=== PATIENT | female | born 1955 | race Caucasian/White ===

== ENCOUNTER 2018-11-08 09:58 | Emergency (ER) | payer MEDICARE ==
--- NOTE | 2018-11-08 10:09 | C.PDOC ---
History Of Present Illness 62 y/o female, with history of christy and chronic pain, presents to ED with chronic pain to her bilateral ankles and right hip. Patient notes this pain started 7 years ago. Also notes that the pain is like throbbing, but not worse than normal. She did not take any medications for the pain, and she is able to ambulate well. [place] notes of [place] and had been evaluated at a different hospital and was admitted for psych reasons at that time. Patient denies any recent fall or trauma, but [place]. No LOC, no pain worse than normal. No pain other than her ankles and her right hip. Denies hallucinations, suicidal or homicidal ideation. Time Seen by Provider: 11/08/18 10:09 Chief Complaint (Nursing): Lower Extremity Problem/Injury History Per: Patient History/Exam Limitations: no limitations Onset/Duration Of Symptoms: Days Current Symptoms Are (Timing): Still Present Past Medical History Reviewed: Historical Data, Nursing Documentation, Vital Signs Vital Signs: Last Vital Signs Temp 98.8 F 11/08/18 10:07 Pulse 89 11/08/18 10:07 Resp 16 11/08/18 10:07 BP 125/83 11/08/18 10:07 Pulse Ox 98 11/08/18 10:07 - Medical History PMH: Denies: Diabetes, Hepatitis, HIV, HTN, Seizures, Sexually Transmitted Disease Family History: States: No Known Family Hx - Social History Hx Alcohol Use: Yes Hx Substance Use: No Review Of Systems Constitutional: Negative for: Fever, Chills Musculoskeletal: Positive for: Other (Bilateral Ankle Pain, Right Hip Pain) Neurological: Negative for: Other (LOC) Psych: Negative for: Suicidal ideation (or homicidal ideation), Other (hallucinations) Physical Exam - Physical Exam Appears: Well, Non-toxic, No Acute Distress Skin: Normal Color, Warm, Dry, No Diaphoretic, No Pale, No Rash, No Jaundice, No Cyanotic, No Ecchymosis Head: Atraumatic, Normacephalic, No Tenderness, No Swelling, No Abrasion, No Laceration Eye(s): bilateral: Normal Inspection, PERRL, EOMI Ear(s): Bilateral: Normal Nose: Normal, No Epistaxis, No Septal Hematoma Oral Mucosa: Moist Tongue: Normal Appearing, No Swelling, No Lesions, No Laceration, No Bleeding Lips: Normal Appearing, No Swelling, No Contusion, No Laceration, No Lesions Teeth: Normal Dentition, No Caries, No Edentulous Gingiva: Normal Appearing, No Erythema, No Ulceration Throat: Normal, No Erythema, No Exudate Neck: Normal, Normal ROM, Supple, Other (no meningeal signs) Chest: Symmetrical, No Deformity, No Tenderness Cardiovascular: Rhythm Regular, No Murmur Respiratory: Normal Breath Sounds, No Rales, No Rhonchi, No Wheezing Gastrointestinal/Abdominal: Soft, No Tenderness Back: Normal Inspection, No CVA Tenderness, No Vertebral Tenderness, No Decreased ROM, No Muscle Spasm, No Paraspinal Tenderness Extremity: Normal ROM, No Tenderness, No Pedal Edema, No Calf Tenderness, No Capillary Refill, No Deformity, No Swelling, Other (neurovascular intact in lower bilateral extremities) Extremity: Bilateral: Atraumatic, Normal Color And Temperature, Normal ROM Pulses: Left Dorsalis Pedis: Normal, Right Dorsalis Pedis: Normal Neurological/Psych: Oriented x3, Normal Speech, Normal Cognition, No Cerebellar Signs, Normal Motor, Other (no manic symptoms noted) Gait: Steady Extremity: Right: No Drift, Left: No Drift ED Course And Treatment O2 Sat by Pulse Oximetry: 98 (RA) Pulse Ox Interpretation: Normal Medical Decision Making Medical Decision Makin yr old F p/w chronic pain s/p [place] earlier. N/v intact in all extremities. Normal neuro exam. MAEW, GCS 15. No signs of trauma noted. No midline tenderness in vertebrae. Fully Non-ttp in any joints or muscular areas. Neck clear via nexus. [id number]. Impression: Chronic Pain Patient was asking for resources for somewhere to stay, social worker aide was called for resources. Plan: --Ankle XR --Hip XR --Tylenol PO 1112 given resources by No SI or HI or anxiety. No depression. No bipolar symptoms noted on exam imaging unremarkable. Pt ambulatory w/ out any complaints pain fully resolved Clear for d/c home Disposition - Disposition Referrals: [facility] [Outside] [facility] [Outside] [facility] [Outside] Disposition: HOME/ ROUTINE Disposition Time: 11:13 Condition: GOOD Additional Instructions: LILLI SAINI, thank you for letting us take care of you today. Your provider was [place] and you were treated for FALL. The emergency medical care you received today was directed at your acute symptoms. If you were prescribed any medication, please fill it and take as directed. It may take several days for your symptoms to resolve. Return to the Emergency Department if your symptoms worsen, do not improve, or if you have any other problems. Please contact your doctor or call one of the physicians/clinics you have been referred to that are listed on the Patient Visit Information form that is included in your discharge packet. Bring any paperwork you were given at discharge with you along with any medications you are taking to your follow up visit. Our treatment cannot replace ongoing medical care by a primary care provider outside of the emergency department. Thank you for allowing the [facility] team to be part of your care today. If you had an X-Ray or CT scan: A Radiologist will review the ED reading if any change in treatment is needed we will contact you. If you had a blood, urine, or wound culture: It will take several days for the results, if any change in treatment is needed we will contact you. If you had an STI test: It will take 48 hours for the results. Please call after 1 week if you have not heard back. Instructions: Preventing Falls in the Older Adult, Muscle and Bone Pain (DC) Forms: [employer] (Bulgarian) - Clinical Impression Clinical Impression: Chronic leg pain, Fall - Scribe Statement The provider has reviewed the documentation as recorded by the [facility] Provider Attestation: All medical record entries made by the [facility] were at my direction and personally dictated by me. I have reviewed the chart and agree that the record accurately reflects my personal performance of the history, physical exam, medical decision making, and the department course for this patient. I have also personally directed, reviewed, and agree with the discharge instructions and disposition.
[2018-11-08 10:12] VITALS: BP 125/83; PULSE 89; TEMP 98.8; O2SAT 98
[2018-11-08 11:27] VITALS: RESP 18
--- NOTE | 2018-11-08 15:51 | RAD ---
Date of service: 11/08/2018 PROCEDURE: Bilateral ankles HISTORY: fall COMPARISON: No prior TECHNIQUE: 3 standard views of the right and left ankles performed FINDINGS: No evidence of acute displaced fracture nor dislocation. The osseous structures intact. Ankle mortise maintained. No significant degenerative osteoarthritis. No significant soft tissue swelling IMPRESSION: No acute fractures.
--- NOTE | 2018-11-08 16:12 | RAD ---
Date of service: 11/08/2018 PROCEDURE: Pelvis right hip HISTORY: Fall with chronic pain COMPARISON: No prior studies available for comparison TECHNIQUE: Frontal view of the pelvis-right hip and frogleg lateral view of the right hip performed FINDINGS: There is a slight contour deformity of the superior margin of the right femoral head/neck junction felt to be positional with no definitive radiographic evidence of acute displaced fracture nor dislocation. Right femoral head is appropriately located within the right acetabulum. Mild degenerative osteoarthritis present. IMPRESSION: There is a slight contour deformity of the superior margin of the right femoral head/neck junction felt to be positional with no definitive radiographic evidence of acute displaced fracture nor dislocation. Right femoral head is appropriately located within the right acetabulum. Mild degenerative osteoarthritis present. If symptoms persist or occult fracture suspected clinically recommend follow-up CT scan the pelvis and right hip
== END 2018-11-08 11:19 | disposition home or self-care (01) ==
LOC: C.ER 09:58
DX: G89.29 Other chronic pain (principal); M79.606 Pain in leg, unspecified